=== PATIENT | female | born 1940 | race Caucasian/White ===

== ENCOUNTER → 2017-11-15 | Outpatient (CLI) | payer OTHER ==
[~2017-11-15] VITALS: Ht 162.6 cm; Wt 63.5 kg
[~2017-11-15] MED LIST: ACETAMINOPHEN325 M1 PO; ACTONEL30 MG PO; ASPIRIN BUFFER325 MG PO; AUGMENTIN 500-1 EACH PO; CALCIUM 500 +1 EAC5 PO; COLACE100 MG PO; DIPHENHYDRAMINE25 M3 PO; EFFEXOR XR150 MG PO; EFFEXOR XR37.5 MG PO; EFFEXOR37.5 MG PO; HYDROCODONE-AP1 EAC6 PO; MOM PO; MULTIVITAMINS1 EAC7 PO; PLAVIX 75 MG TA75 MG PO; PRAVACHOL20 MG PO; SIMVASTATIN PO; SIMVASTATIN20 MG PO; UNICOMPLEX M TA1 TA1 PO; VITAMIN B PO; VITAMIN B-1100 MG PO
--- NOTE | ~2017-11-15 | PATH ---
[facility] [address] [place] [address] PATHOLOGY RPT PROCEDURE Name: LUPILLOTAMIKO MANZANO Room #: REG [facility] Gallito.#: [id number] Admission: 11/15/17 Date of : 42 Discharge: Report #: [id number] Path Case #: [id number] [facility] Accession Number: [id number] . 01 Material submitted: . BX OF PROCTITIS . 01 Clinical history: . Pre-OP DX: Screening Post-OP DX: Proctitis, diverticulosis, rectal prolapse . 02 Diagnosis: Large intestinal mucosa, proctitis, endoscopic biopsy: - Moderate active colitis with focal ulceration (please see comment). - Negative for dysplasia or malignancy. [facility]/11/16/2017 . 02 Comment: Examination shows cryptitis, surface ulceration, and expanded lamina propria as well as occasional architectural distortion compatible with moderate chronic active colitis. The provided history of proctitis is noted. The differential diagnosis includes focal active colitis, active colitis due to an infectious etiology, or a self-limited etiology, inflammatory bowel disease (ulcerative colitis), solitary rectal ulcer, as well as mucosal prolapse syndrome. Please correlate clinically and follow up as indicated. (IUV:pit 11/16/2017) . 02 Electronically signed: . Trudy Lagos MD, Pathologist NPI- [id number] . 01 Gross description: . Received in formalin labeled "Judy Siddiqi, BX of proctitis," are 3 segments of dooley soft tissue measuring 0.9 x 0.5 x 0.3 cm in aggregate dimensions and ranging from 0.3 to 0.5 cm in maximum dimension. The specimen is submitted entirely in cassette A1. (TSD; 11/15/2017) TOB/TOB . 02 Pathologist provided ICD-10: K52.9, K63.3 . 02 CPT . 356219 Specimen Comment: A courtesy copy of this report has been sent to Specimen Comment: [phone], [place] [address] PATHOLOGY RPT PROCEDURE Name: TAMIKO SIDDIQI Room #: REG KAREN Lewis#: [id number] Admission: 11/15/17 Date of : 42 Discharge: Report #: [id number] Path Case #: [id number] Specimen Comment: Report sent to / DR DUVAL Performed at: [address], [place], [place] [id number] MD Silvio Oconnor MD Phone: [phone] Performed at: [address] [id number] MD Trudy Lagos MD Phone: [phone]
== END | disposition home or self-care (01) ==
LOC: GI 11:20
DX: Z12.11 Encounter for screening for malignant neoplasm of colon (principal); K62.3 Rectal prolapse; K64.8 Other hemorrhoids; K52.9 Noninfective gastroenteritis and colitis, unspecified; K63.3 Ulcer of intestine; K57.30 Diverticulosis of large intestine without perforation or abscess without bleeding; E78.00 Pure hypercholesterolemia, unspecified; F32.9 Major depressive disorder, single episode, unspecified; E78.5 Hyperlipidemia, unspecified; Z85.828 Personal history of other malignant neoplasm of skin; Z86.73 Personal history of transient ischemic attack (TIA), and cerebral infarction without residual deficits; Z98.890 Other specified postprocedural states; Z79.899 Other long term (current) drug therapy; Z90.89 Acquired absence of other organs; Z79.01 Long term (current) use of anticoagulants
CPT/HCPCS: 62110; 62900

== ENCOUNTER → 2018-06-14 | Outpatient (CLI) | payer OTHER | LOC: NUC 08:55 | DX: M81.0 Age-related osteoporosis without current pathological fracture (principal); Z78.0 Asymptomatic menopausal state; Z79.899 Other long term (current) drug therapy ==

== ENCOUNTER → 2018-11-29 | Outpatient (CLI) | payer OTHER | LOC: RAD 14:54 | DX: Z12.31 Encounter for screening mammogram for malignant neoplasm of breast (principal) ==

== ENCOUNTER → 2018-12-05 | Outpatient (CLI) | payer OTHER | LOC: BC 13:27 | DX: N63.20 Unspecified lump in the left breast, unspecified quadrant (principal) ==

== ENCOUNTER → 2019-08-14 | Outpatient (CLI) | payer OTHER | LOC: RAD 13:41 | PROVIDERS: ATTEND Family Medicine | DX: N63.20 Unspecified lump in the left breast, unspecified quadrant (principal); N64.89 Other specified disorders of breast ==

== ENCOUNTER → 2020-09-30 | Outpatient (CLI) | payer OTHER | LOC: BC 14:05 | PROVIDERS: ATTEND Family Medicine | DX: Z12.31 Encounter for screening mammogram for malignant neoplasm of breast (principal) ==